=== PATIENT | male | born 1950 | race Caucasian/White ===

== ENCOUNTER 2021-01-08 03:19 | Observation (INO) ==
[2021-01-08 04:53] LABS: Basophils # (Auto) 0.04 K/mcL (0.00-0.20); Basophils % (Auto) 0.7 % (0.0-2.0); Eosinophils # (Auto) 0.15 K/mcL (0.00-0.70); Eosinophils % (Auto) 2.6 % (0.0-7.0); Hematocrit 38.5 % (41.0-55.0); Hemoglobin 14.3 g/dL (13.5-16.5); Lymphocytes # (Auto) 2.07 K/mcL (1.50-4.80); Lymphocytes % (Auto) 35.3 % (15.0-49.0); Mean Cell Volume 96.5 fL (80.0-100.0); Mean Corpuscular HGB Conc 37.1 g/dL (31.0-36.0); Mean Platelet Volume 9.5 fL (7.4-10.4); Monocytes # (Auto) 0.58 K/mcL (0.10-0.90); Monocytes % (Auto) 9.9 % (1.0-12.0); Neutrophils % (Auto) 51.5 % (38.0-78.0); Platelet Count 237 K/mcL (140-440); RBC 3.99 M/mcL (4.50-5.90); Red Cell Distribution Width 11.3 % (11.5-14.5); WBC 5.9 K/mcL (4.5-11.0)
[2021-01-08 04:56] LABS: ALT/SGPT 15 U/L (<40); AST/SGOT 22 U/L (<40); Albumin 3.8 gm/dL (3.2-5.2); Albumin/Globulin Ratio 1.5 (1.0-2.3); Alkaline Phosphatase 49 U/L (39-117); Bilirubin,Total 0.7 mg/dL (0.1-1.0); Blood Urea Nitrogen 7 mg/dL (8-23); Calcium 8.6 mg/dL (8.6-10.4); Carbon Dioxide 25 mmol/L (22-30); Chloride 85 mmol/L (96-108); Globulin 2.5 gm/dL (2.2-3.7); Glomerular Filtration Rate 95; Glucose 98 mg/dL (70-105)
[2021-01-08] MEDS ORDERED: DEXAMETHASONE 10 MG/ML VIAL IV ONE (05:02)
[2021-01-08] MEDS ORDERED: diphenhydrAMINE 50 MG/ML VIAL IV ONE (05:02)
[2021-01-08] MEDS ORDERED: FAMOTIDINE/PF 20 MG/2 ML VIAL IV ONE (05:02)
--- NOTE | 2021-01-08 05:10 | Emergency Department Note ---
Allergic Reaction HPI General Chief complaint: Allergic Reaction Stated complaint: allergic reaction Time Seen by Provider: 01/08/21 05:02 Source: patient Mode of arrival: ambulatory Limitations: no limitations History of Present Illness HPI Narrative: Narrative: The patient presents with swelling to his lower right face. The patient does take lisinopril. The patient woke up to use the restroom and noticed the s welling. There has been no progression since then. He denies any other possible allergens. 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 He denies any dyspnea. Related Data Home Medications Medication Instructions Recorded Confirmed lisinopril 20 mg tablet 20 mg PO QDAY 01/19/20 12/31/20 omeprazole 20 mg tablet,delayed 20 mg PO QDAY 01/19/20 12/31/20 release cholecalciferol (vitamin D3) 50 50 mcg PO QDAY 12/31/20 12/31/20 mcg (2,000 unit) capsule cyanocobalamin (vitamin B-12) 500 500 mcg PO QDAY 12/31/20 12/31/20 mcg tablet folic acid 1 mg tablet 1 mg PO BID tab 12/31/20 12/31/20 hydrochlorothiazide 12.5 mg tablet 12.5 mg PO QDAY 12/31/20 12/31/20 Allergies Allergy/AdvReac Type Severity Reaction Status Date / Time No Known Drug Allergies Allergy Unverified 11/11/17 22:54 Review of Systems ROS ROS Narrative: Narrative: All systems ED: reviewed and negative except as stated. 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) Hypertension (Chronic) Dizziness (Chronic) Chest pain (Chronic) Medical History (Updated 01/08/21 @ 05:10 by Rubén Vaz MD) Alcohol abuse Chest pain CKD (chronic kidney disease), stage III Dizziness Dysphagia Foreign body in esophagus GERD (gastroesophageal reflux disease) Hearing loss Hyperlipidemia Hypertension Polyp of colon Schatzki's ring Tinea cruris Tinnitus Vitamin B 12 deficiency Surgical History (Updated 12/31/20 @ 11:26 by Mary Anne Perrin) No pertinent past surgical history Family History (Updated 12/31/20 @ 11:04 by Mary Anne Perrin) Father COPD (chronic obstructive pulmonary disease) Mother Alzheimers disease Breast cancer Sister Diabetes mellitus Social History Smoking Status: Former smoker Alcohol Intake Frequency: 0-2 drinks per day Exam Narrative Narrative: Narrative: General Limitations: no limitations General appearance: Present alert, in no apparent distress and other (The patient can speak in multiple word sentences) Head Head: Present atraumatic; Absent normal inspection (Moderate angioedema of the right lower face including the lips but not the tongue) Eye Eye: Present normal appearance ENT ENT: Present mucous membranes moist and other (No significant tongue edema) Neck Neck: Present normal inspection, full ROM and trachea midline; Absent other (No stridor) Chest Chest: Present normal inspection and symmetric chest wall rise Respiratory Respiratory: Present normal lung sounds bilaterally; Absent respiratory distress Cardiovascular Cardiovascular: Present regular rate and normal rhythm Adbominal Abdominal: Absent distention Extremities Extremities: Present normal inspection and full ROM Back Back: Present full ROM Neurological Neurological: Present alert and oriented X3 Psychiatric Psychiatric: Present normal affect and normal mood Skin Skin: Present warm (WNL) and dry; Absent rash Course Reevaluation(s) Reevaluation #1: I spoke to the hospitalist, Dr. Fontana. He agreed to place in observation and asked me to write holding orders Time: 05:14 Vital Signs Vital signs: Vital Signs Temperature 98.1 F 01/08/21 03:20 Pulse Rate 71 01/08/21 03:20 Respiratory Rate 18 01/08/21 03:20 Blood Pressure 157/94 01/08/21 03:20 Pulse Oximetry (%) 97 01/08/21 03:20 Temperature 98.1 F 01/08/21 03:20 Pulse Rate 73 01/08/21 04:45 Respiratory Rate 18 01/08/21 03:20 Blood Pressure 130/77 01/08/21 04:45 Pulse Oximetry (%) 97 01/08/21 04:45 MDM MDM Narrative Medical decision making narrative: Narrative: The patient presents with what appears to be angioedema, probably related to his SKIP inhibitor. He has no sign of airway compromise. We will obtain basic labs, give dexamethasone, Benadryl, and Pepcid. I will then contact the hospitalist and recommend an observation period. Lab Data Lab results reviewed: Yes I reviewed the patient's lab results. Result diagrams: 01/08/21 03:35 01/08/21 03:35 Labs: Lab Results 01/08/21 01/08/21 Range/Units 03:35 03:35 WBC 5.9 (4.5-11.0) K/mcL RBC 3.99 L (4.50-5.90) M/mcL Hgb 14.3 (13.5-16.5) g/dL Hct 38.5 L (41.0-55.0) % MCV 96.5 (80.0-100.0) fL MCH 35.8 H (26.0-34.0) pg MCHC 37.1 H (31.0-36.0) g/dL RDW 11.3 L (11.5-14.5) % Plt Count 237 (140-440) K/mcL MPV 9.5 (7.4-10.4) fL Neut % (Auto) 51.5 (38.0-78.0) % Lymph % (Auto) 35.3 (15.0-49.0) % [place] % (Auto) 9.9 (1.0-12.0) % Eos % (Auto) 2.6 (0.0-7.0) % Baso % (Auto) 0.7 (0.0-2.0) % Lymph # (Auto) 2.07 (1.50-4.80) K/mcL [place] # (Auto) 0.58 (0.10-0.90) K/mcL Eos # (Auto) 0.15 (0.00-0.70) K/mcL Baso # (Auto) 0.04 (0.00-0.20) K/mcL Absolute Neutrophils 3.02 (1.80-8.00) K/mcL Sodium 121 L (133-145) mmol/L Potassium 4.1 (3.3-5.1) mmol/L Chloride 85 L (96-108) mmol/L Carbon Dioxide 25 (22-30) mmol/L Anion Gap 11.0 (8.0-16.0) BUN 7 L (8-23) mg/dL Creatinine 0.7 (0.7-1.2) mg/dL GFR Calculation 95 Glucose 98 (70-105) mg/dL Calcium 8.6 (8.6-10.4) mg/dL Total Bilirubin 0.7 (0.1-1.0) mg/dL AST 22 (<40) U/L ALT 15 (<40) U/L Alkaline Phosphatase 49 (39-117) U/L Total Protein 6.3 (5.9-8.4) gm/dL Albumin 3.8 (3.2-5.2) gm/dL Globulin 2.5 (2.2-3.7) gm/dL Albumin/Globulin Ratio 1.5 (1.0-2.3) Discharge Plan Patient/Caregiver Discharge Instructions Pt seen by DIESEL FITTER MECHANIC/PA only: No Clinical Impression: Angioedema Patient Disposition: Xfer As Outpt/Obs ([facility]) [facility] Provider[facility] - Prescriptions: No Action lisinopril 20 mg tablet 20 mg PO QDAY RF: 0 omeprazole 20 mg tablet,delayed release (DR/EC) 20 mg PO QDAY RF: 0 cholecalciferol (vitamin D3) 50 mcg (2,000 unit) capsule 50 mcg PO QDAY RF: 0 hydrochlorothiazide 12.5 mg tablet 12.5 mg PO QDAY RF: 0 cyanocobalamin (vitamin B-12) 500 mcg tablet 500 mcg PO QDAY RF: 0 folic acid 1 mg tablet 1 mg PO BID RF: 0
[2021-01-08] MEDS ORDERED: ONDANSETRON 4 MG/2 ML VIAL IV PRN ×2 (05:14→07:44)
[2021-01-08] MEDS ORDERED: ACETAMINOPHEN 325 MG TABLET PO PRN (05:14)
[2021-01-08] MEDS ORDERED: 0.9 % SODIUM CHLORIDE 1,000 ML IV SCH (05:15)
[2021-01-08] MEDS ORDERED: 0.9 % SODIUM CHLORIDE 10 ML SYRINGE IV SCH ×2 (06:00→14:00)
[2021-01-08] MEDS ORDERED: OMEPRAZOLE 20 MG CAPSULE PO SCH (07:30)
[2021-01-08] MEDS ORDERED: SENNOSIDES 1 TABLET PO PRN (07:44)
[2021-01-08] MEDS ORDERED: LACTULOSE 20 GM/30 ML ORAL.SOL PO PRN (07:44)
[2021-01-08] MEDS ORDERED: VITAMIN D3 1,000 UNIT TABLET PO SCH (09:00)
[2021-01-08] MEDS ORDERED: DOCUSATE SODIUM 100 MG CAPSULE PO SCH ×2 (09:00)
[2021-01-08] MEDS ORDERED: CYANOCOBALAMIN (VITAMIN B-12) 500 MCG TABLET PO SCH (09:00)
[2021-01-08] MEDS ORDERED: FOLIC ACID 1 MG TABLET PO SCH (09:00)
--- NOTE | 2021-01-08 13:51 | Internal Med History&Physical ---
HPI History of Present Illness Patient information: Note initiated : 01/08/21 at 1:46 pm Service Date, if different from initiated Date: [] Patient: David Louis 70 y/o M admitted on 01/08/21 for Allergic Reaction/Angioedema. Chief Complaint: [] History of present illness: Mr. Louis is a 70 year old male history of hypertension, hyperlipidemia, Schatzki's ring, GERD, alcohol use disorder presented to the ED for right facial swelling concerning for angioedema. The patient does take lisinopril for blood pressure, he says that he went on a trip recently and did not take the medication for several days and returned home and started taking it again. In the ED, the patient had routine labs remarkable for moderate hyponatremia. Chest x-ray did not show any acute process. The patient was given Decadron and Benadryl and admitted to observation for angioedema. Constitutional: no fever, fatigue, or weight loss HENT: right facial swelling, airway tightness. Cardiovascular: no chest pain, no palpitations Respiratory: no cough or dyspnea Gastrointestinal: no abdominal pain, no nausea, vomiting, or diarrhea Genitourinary: no dysuria or difficulty voiding Musculoskeletal: no arthralgia or myalgia Integumentary: no skin lesion or wound Neurological: no focal weakness or numbness Psychiatric: no anxiety or depression Head: Atraumatic, normal inspection. Eyes: normal appearance, no scleral icterus. Neck: full ROM Respiratory: no respiratory distress. Cardiovascular: normal rate and rhythm, S1, S2. GI/Abdominal: soft, nontender, no guarding. Extremities: full range of motion, nontender. Neurological: CN II-XII intact, intact motor, intact sensation. Psychiatric: normal mood. 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) Hypertension (Chronic) Dizziness (Chronic) Chest pain (Chronic) Medical History (Updated 01/08/21 @ 05:10 by Rubén Vaz MD) Alcohol abuse Chest pain CKD (chronic kidney disease), stage III Dizziness Dysphagia Foreign body in esophagus GERD (gastroesophageal reflux disease) Hearing loss Hyperlipidemia Hypertension Polyp of colon Schatzki's ring Tinea cruris Tinnitus Vitamin B 12 deficiency Surgical History (Updated 12/31/20 @ 11:26 by Mary Anne Perrin) No pertinent past surgical history Family History (Updated 12/31/20 @ 11:04 by Mary Anne Perrin) Father COPD (chronic obstructive pulmonary disease) Mother Alzheimers disease Breast cancer Sister Diabetes mellitus Social History (Updated 12/31/20 @ 11:02 by Mary Anne Perrin) smoking status: Former smoker alcohol intake frequency: 0-2 drinks per day MEDS/ALLERGIES Home Medications and Allergies Home Medications Medication Instructions Recorded Confirmed Type lisinopril 20 mg tablet 20 mg PO QDAY 01/19/20 01/08/21 History omeprazole 20 mg tablet,delayed 20 mg PO QDAY 01/19/20 01/08/21 History release cholecalciferol (vitamin D3) 50 50 mcg PO QDAY 12/31/20 01/08/21 History mcg (2,000 unit) capsule cyanocobalamin (vitamin B-12) 500 500 mcg PO QDAY 12/31/20 01/08/21 History mcg tablet folic acid 1 mg tablet 1 mg PO BID tab 12/31/20 01/08/21 History hydrochlorothiazide 12.5 mg tablet 12.5 mg PO QDAY 12/31/20 01/08/21 History Allergies Allergy/AdvReac Type Severity Reaction Status Date / Time lisinopril Allergy Severe Angioedema Verified 01/08/21 14:00 EXAM Constitutional Vitals: Temp Pulse Resp BP Pulse Ox 98.1 F 59 L 14 103/66 95 01/08/21 12:01 01/08/21 10:46 01/08/21 12:01 01/08/21 12:01 01/08/21 10:46 DATA Data Completed and Pending Labs: Labs from last 24 hours 01/08/21 01/08/21 01/08/21 08:01 03:35 03:35 WBC 5.9 RBC 3.99 L Hgb 14.3 Hct 38.5 L MCV 96.5 MCH 35.8 H MCHC 37.1 H RDW 11.3 L Plt Count 237 MPV 9.5 Neut % (Auto) 51.5 Lymph % (Auto) 35.3 [place] % (Auto) 9.9 Eos % (Auto) 2.6 Baso % (Auto) 0.7 Lymph # (Auto) 2.07 [place] # (Auto) 0.58 Eos # (Auto) 0.15 Baso # (Auto) 0.04 Absolute Neutrophils 3.02 Sodium 125 L 121 L Potassium 4.1 Chloride 85 L Carbon Dioxide 25 Anion Gap 11.0 BUN 7 L Creatinine 0.7 GFR Calculation 95 Glucose 98 Calcium 8.6 Total Bilirubin 0.7 AST 22 ALT 15 Alkaline Phosphatase 49 Total Protein 6.3 Albumin 3.8 Globulin 2.5 Albumin/Globulin Ratio 1.5 A/P Narrative A/P Narrative: 70-year-old male with a history of hypertension, GERD presented to the ED with rapid onset right facial swelling and swallowing difficulties and admitted for observation for angioedema. Patient received Decadron and Benadryl in the ED. The patient feels like the edema has improved. No urticaria or systemic manifestations to suggest allergic angioedema. #Concern for angioedema due to SKIP-I #Hyponatremia #Hypertension #Hyperlipidemia #GERD #Alcohol use disorder Plan -Observation for close monitoring of angioedema which seems to be improving. -Holding lisinopril, will not resume at discharge. -Holding HCTZ for hyponatremia. -Follow Na level. -Continue home PPI. -Monitor for alcohol withdrawal. -If no resolution of symptoms plan for CT head/neck to evaluate for extrinsic airway/esophageal compression. -DVT ppx: ambulatory -Code status: Full -Disposition: home Time Spent With Patient Time: Total time spent is greater than 50% in coordination of care (as documented) at patient's floor/unit and/or counseling patient: QUALITY VTE Deep Vein Thrombosis/Pulmonary Embolism Present on Admission: No
--- NOTE | 2021-01-08 16:39 | Discharge Summary ---
Discharge Provider Provider Patient information: Note initiated : 01/08/21 at 4:29 pm Service Date, if different from initiated Date: [] Patient: David Louis 70 y/o M admitted on 01/08/21 for Allergic Reaction/Angioedema. Chief Complaint: [] Date of admission: 01/08/21 06:33 Discharge date: 01/08/21 Primary care physician: [facility] Consults: 01/08/21 Consult to Physician [CONS] Stat Comment: Consulting Provider: Silverio Fontana Reason For Exam: Physician to Consult Discharge Meds Discharge Medications Home Medications omeprazole 20 mg tablet,delayed release 20 mg PO QDAY 01/19/20 [History C onfirmed 01/08/21 Last Taken 01/07/21] cholecalciferol (vitamin D3) 50 mcg (2,000 unit) capsule 50 mcg PO QDAY 12/31/20 [History Confirmed 01/08/21 Last Taken 01/07/21] cyanocobalamin (vitamin B-12) 500 mcg tablet 500 mcg PO QDAY 12/31/20 [History Confirmed 01/08/21 Last Taken 01/07/21] folic acid 1 mg tablet 1 mg PO BID tab 12/31/20 [History Confirmed 01/08/21 Last Taken 01/07/21] hydrochlorothiazide 12.5 mg tablet 12.5 mg PO QDAY 12/31/20 [History Confirmed 01/08/21 Last Taken 01/07/21] COURSE Hospital Course Hospital course: Mr. Louis is a 70 year old male history of hypertension, hyperlipidemia, Schatzki's ring, GERD, alcohol use disorder presented to the ED for right facial swelling concerning for angioedema. The patient does take lisinopril for blood pressure, he says that he went on a trip recently and did not take the medication for several days and returned home and started taking it again. In the ED, the patient had routine labs remarkable for moderate hyponatremia. Chest x-ray did not show any acute process. The patient was given Decadron and Benadryl and admitted to observation for angioedema. The patient felt the edema improved by late morning therefore no further interventions were added. He was started on a diet and monitored throughout the day. Sodium followed Q6 hrs and trended toward normal after IV fluid administration. Later that afternoon the patient felt the edema had resolved and was comfortable going home. We discussed the rational for avoiding SKIP-inhibito rs. The patient blood pressure remained normal during the monitoring period while he did not receive lisinopril. Lisinopril was not resumed at discharge. Hydrochlorothiazide was resumed at discharge. Post hospital follow up; -Blood pressure management. -Avoid SKIP-inhibitors Head: Atraumatic, normal inspection. Eyes: normal appearance, no scleral icterus. Neck: full ROM Respiratory: no respiratory distress. Cardiovascular: normal rate and rhythm, S1, S2. GI/Abdominal: soft, nontender, no guarding. Extremities: full range of motion, nontender. Neurological: CN II-XII intact, intact motor, intact sensation. Psychiatric: normal mood. Skin: warm, normal color Discharge diagnosis: Angioedema suspected to be bradykinen-mediated (SKIP- inhibitor induced) Reason for admission: Angioedema Time Spent with Patient Time attestation: Total time spent providing and/or coordinating discharge services: EXAM Constitutional Vitals: Temp Pulse Resp BP Pulse Ox 98.1 F 65 17 153/86 95 01/08/21 12:01 01/08/21 14:16 01/08/21 14:46 01/08/21 14:46 01/08/21 14:16 Discharge Data Data Completed and Pending Labs on day of discharge: Labs from last 24 hours 01/08/21 01/08/21 01/08/21 13:50 08:01 03:35 WBC RBC Hgb Hct MCV MCH MCHC RDW Plt Count MPV Neut % (Auto) Lymph % (Auto) [place] % (Auto) Eos % (Auto) Baso % (Auto) Lymph # (Auto) [place] # (Auto) Eos # (Auto) Baso # (Auto) Absolute Neutrophils Sodium Pending 125 L 121 L Potassium 4.1 Chloride 85 L Carbon Dioxide 25 Anion Gap 11.0 BUN 7 L Creatinine 0.7 GFR Calculation 95 Glucose 98 Calcium 8.6 Total Bilirubin 0.7 AST 22 ALT 15 Alkaline Phosphatase 49 Total Protein 6.3 Albumin 3.8 Globulin 2.5 Albumin/Globulin Ratio 1.5 01/08/21 03:35 WBC 5.9 RBC 3.99 L Hgb 14.3 Hct 38.5 L MCV 96.5 MCH 35.8 H MCHC 37.1 H RDW 11.3 L Plt Count 237 MPV 9.5 Neut % (Auto) 51.5 Lymph % (Auto) 35.3 [place] % (Auto) 9.9 Eos % (Auto) 2.6 Baso % (Auto) 0.7 Lymph # (Auto) 2.07 [place] # (Auto) 0.58 Eos # (Auto) 0.15 Baso # (Auto) 0.04 Absolute Neutrophils 3.02 Sodium Potassium Chloride Carbon Dioxide Anion Gap BUN Creatinine GFR Calculation Glucose Calcium Total Bilirubin AST ALT Alkaline Phosphatase Total Protein Albumin Globulin Albumin/Globulin Ratio Discharge Plan Patient/Caregiver Discharge Instructions Activity: increase activity as tolerated Diet: Regular Diet Prescriptions: Continued omeprazole 20 mg tablet,delayed release (DR/EC) 20 mg PO QDAY RF: 0 cholecalciferol (vitamin D3) 50 mcg (2,000 unit) capsule 50 mcg PO QDAY RF: 0 hydrochlorothiazide 12.5 mg tablet 12.5 mg PO QDAY RF: 0 cyanocobalamin (vitamin B-12) 500 mcg tablet 500 mcg PO QDAY RF: 0 folic acid 1 mg tablet 1 mg PO BID RF: 0 Discontinued lisinopril 20 mg tablet 20 mg PO QDAY RF: 0 Follow Up Plan [facility] with: [facility] [Primary [facility] Provider[facility] - Patient Disposition: Home, Self-Care Overall status at discharge: patient is back to baseline Discharge Orders: Discharge Order (Routine); Ordered 01/08/21 Ordered By: Silverio RAGLAND VTE Deep Vein Thrombosis/Pulmonary Embolism Present on Admission: No
[2021-01-08] MEDS ORDERED: SENNOSIDES 1 TABLET PO SCH (21:00)
== END 2021-01-08 18:20 | disposition home or self-care (01) ==
LOC: ED 03:19 → ICU 06:33 → INTOOBSV 06:33 → ICU 06:35
PROVIDERS: ADMIT Internal Medicine; ATTEND Internal Medicine